=== PATIENT | female | born 1950 | race African-American/Black ===

== ENCOUNTER 2018-02-09 12:18 | Outpatient (CLI) | payer MEDICARE, MEDICAID | END 2018-02-09 12:19 | disposition home or self-care (01) | LOC: BICMAMMO 12:18 | PROVIDERS: ATTEND Family Medicine | DX: Z12.31 Encounter for screening mammogram for malignant neoplasm of breast (principal) | CPT/HCPCS: 77063; 77067 ==

== ENCOUNTER 2021-06-09 08:34 | Outpatient (CLI) | payer MEDICARE, MEDICAID ==
[2021-06-09 10:30] LABS: #Eosinphils 0.3 10x3/uL (0.0-0.5); #Monocytes 0.8 10x3/uL (0.0-1.1); #Neutrophils 5.1 10x3/uL (1.5-8.4); %Basophils 0.2 % (0.0-2.0); %Lymphocytes 26.3 % (18.0-47.0); %Monocytes 9.2 % (0.0-10.0); %Neutrophils 61.1 % (40.0-75.0); Hemoglobin 12.5 g/dL (12.0-15.5); Mean Corpuscular HGB CONC 31.3 g/dL (32.0-36.0); Mean Corpuscular Hemoglobin 28.8 pg (27.0-33.0); Mean Corpuscular Volume 91.9 fl (81.6-98.3); Mean Platelet Volume 9.7 fl (7.4-10.4); Platelet Count 259 10x3/uL (150-450); RBC Distribution Width 13.7 % (11.5-14.5); Red Blood Cell (RBC) Count 4.34 10x6/uL (3.90-5.03); White Blood Cell (WBC) Count 8.3 10x3/uL (3.5-10.5)
[2021-06-09 10:46] LABS: INR-International Normal Ratio 1.2; PTT 27.2 sec (22.0-33.0)
[2021-06-09 10:48] LABS: Anion Gap 14 mmol/L (10-20); BUN (Urea Nitrogen) 18 mg/dL (9.8-20.1); Calc. Creatinine Clearance 0 mL/min (70-130); Calcium 9.9 mg/dL (7.8-10.44); Carbon Dioxide 28 mmol/L (23-31); Chloride 102 mmol/L (98-107); Glucose 87 mg/dL (80-115); Potassium 3.8 mmol/L (3.5-5.1); Sodium 140 mmol/L (136-145)
[2021-06-09 18:41] LABS: SARS-CoV-2 PCR by NAA Not Detected (NotDetected)
== END 2021-06-09 08:35 | disposition home or self-care (01) ==
LOC: LABBT 08:34
PROVIDERS: ATTEND Internal Medicine Cardiovascular Disease
DX: Z01.812 Encounter for preprocedural laboratory examination (principal); I48.0 Paroxysmal atrial fibrillation; Z20.822 Contact with and (suspected) exposure to COVID-19
CPT/HCPCS: 80048; 85025; 85610; 85730; U0003; U0005

== ENCOUNTER 2022-04-28 14:50 | Inpatient (IN) | payer OTHER ==
[2022-04-28] MEDS ORDERED: Magnesium 2 GM/50 ML BAG (IN WATER) ONE (16:43)
[2022-04-28 16:58] LABS: #Eosinphils 0.3 thou/uL (0.0-0.7); #Lymphocytes 2.4 thou/uL (1.20-3.40); #Monocytes 0.7 thou/uL (0.11-0.59); #Neutrophils 5.9 thou/uL (1.40-6.50); %Basophils 0.2 % (0.0-1.0); %Eosinophils 3.6 % (0.0-10.0); %Lymphocytes 25.2 % (21.0-51.0); %Monocytes 7.9 % (0.0-10.0); %Neutrophils 63.2 % (42.0-75.0); Hemoglobin 13.5 g/dL (12.0-16.0); Mean Corpuscular HGB CONC 31.6 g/dL (32.0-36.0); Mean Corpuscular Hemoglobin 30.1 pg (27.0-31.0); Mean Corpuscular Volume 95.4 fL (78.0-98.0); Mean Platelet Volume 7.4 fL (7.4-10.4); Platelet Count 288 thou/uL (130-400); RBC Distribution Width 12.7 % (11.5-14.5); Red Blood Cell (RBC) Count 4.49 mill/uL (4.20-5.40); White Blood Cell (WBC) Count 9.3 thou/uL (4.8-10.8)
[2022-04-28 17:21] LABS: ALT (SGPT) Less than 7 U/L (8-55); AST (SGOT) 8 U/L (5-34); Albumin 3.6 g/dL (3.4-4.8); Alkaline Phosphatase 87 U/L (40-110); Anion Gap 13 mmol/L (10-20); BUN (Urea Nitrogen) 22 mg/dL (9.8-20.1); Bilirubin, Total 0.6 mg/dL (0.2-1.2); Calc. Creatinine Clearance 0 mL/min (70-130); Calcium 9.6 mg/dL (7.8-10.44); Carbon Dioxide 32 mmol/L (23-31); Chloride 95 mmol/L (98-107); Estimated GFR 31; Globulin 3.3 g/dL (2.4-3.5); Glucose 203 mg/dL (80-115); Magnesium 2.3 mg/dL (1.6-2.6); Potassium 3.4 mmol/L (3.5-5.1); Protein, Total 6.9 g/dL (5.8-8.1); Sodium 137 mmol/L (136-145)
[2022-04-28 20:26] LABS: Troponin I Less than 0.010 ng/mL (< 0.028)
[2022-04-28] MEDS ORDERED: Ondansetron PF 4 MG/2 ML Vial IVP PRN (21:15)
[2022-04-28] MEDS ORDERED: Acetaminophen 325 MG TAB PO PRN (21:15)
[2022-04-28] MEDS ORDERED: Ondansetron ODT 4 MG TAB SL PRN (21:15)
[2022-04-28 21:56] VITALS: BMI 44.4
[2022-04-29] MEDS ORDERED: Dextrose 50% Abboject 50 ML SYRINGE SLOW IVP PRN (04:11)
[2022-04-29] MEDS ORDERED: Dextrose 5% in Water 1,000 ML IV PRN (04:11)
[2022-04-29 08:26] LABS: Anion Gap 15 mmol/L (10-20); BUN (Urea Nitrogen) 24 mg/dL (9.8-20.1); Calc. Creatinine Clearance 57 mL/min (70-130); Calcium 9.9 mg/dL (7.8-10.44); Carbon Dioxide 33 mmol/L (23-31); Chloride 96 mmol/L (98-107); Estimated GFR 31; Glucose 146 mg/dL (80-115); Potassium 3.5 mmol/L (3.5-5.1); Sodium 140 mmol/L (136-145)
[2022-04-29] MEDS ORDERED: Furosemide 80 MG TAB PO SCH ×2 (09:00)
[2022-04-29] MEDS ORDERED: Sotalol HCl 80 MG TAB PO SCH (09:00)
[2022-04-29] MEDS ORDERED: Empagliflozin 25 MG TAB PO SCH (09:00)
[2022-04-29] MEDS: Apixaban 5 MG TAB PO SCH ×2 (11:35→20:31)
[2022-04-29] MEDS: Aspirin Chewable 81 MG TAB PO SCH (11:35)
[2022-04-29] MEDS: Sacubitril 49 MG/Valsartan 51 MG TABLET PO SCH ×2 (11:35→20:30)
[2022-04-29] MEDS: Amlodipine 5 MG TAB PO SCH (11:35)
[2022-04-29] MEDS: Furosemide 40 MG TAB PO SCH (11:36)
[2022-04-29] MEDS: Potassium Chloride 20 MEQ TAB PO SCH (11:36)
[2022-04-29] MEDS: Rosuvastatin 10 MG TAB PO SCH (11:37)
[2022-04-29] MEDS: Insulin Glargine 30 UNITS/0.3 ML VIAL SC SCH (11:37)
[2022-04-29] MEDS ORDERED: Sodium Chloride 0.9% 500 ML IVPB SCH (13:00)
[2022-04-29] MEDS: Aspirin 81 mg Enteric Coated Tablet PO SCH (13:25)
[2022-04-29] MEDS: HumaLOG 300 UNITS/3 ML VIAL SC PRN (13:31)
[2022-04-29] MEDS: Carvedilol 6.25 MG TAB PO SCH ×2 (13:32→21:15)
[2022-04-29] MEDS: Icosapent Ethyl 1 GM CAPSULE PO SCH ×2 (13:32→20:30)
[2022-04-30] MEDS: Furosemide 40 MG TAB PO SCH (09:26)
[2022-04-30] MEDS: Rosuvastatin 10 MG TAB PO SCH (09:27)
[2022-04-30] MEDS: Sacubitril 49 MG/Valsartan 51 MG TABLET PO SCH ×2 (09:27→20:30)
[2022-04-30] MEDS: Potassium Chloride 20 MEQ TAB PO SCH (09:28)
[2022-04-30] MEDS: Amlodipine 5 MG TAB PO SCH (09:28)
[2022-04-30] MEDS: Aspirin 81 mg Enteric Coated Tablet PO SCH (09:28)
[2022-04-30] MEDS: Carvedilol 6.25 MG TAB PO SCH (09:31)
[2022-04-30] MEDS: Sotalol HCl 80 MG TAB PO SCH ×2 (09:33→20:35)
[2022-04-30] MEDS: Apixaban 5 MG TAB PO SCH ×2 (09:33→20:30)
[2022-04-30] MEDS: Insulin Glargine 30 UNITS/0.3 ML VIAL SC SCH (09:36)
[2022-04-30] MEDS: Icosapent Ethyl 1 GM CAPSULE PO SCH ×2 (09:42→20:34)
[2022-04-30] MEDS: Aspirin Chewable 81 MG TAB PO SCH (10:15)
[2022-04-30] MEDS: HumaLOG 300 UNITS/3 ML VIAL SC PRN (13:17)
[2022-05-01 05:36] LABS: Anion Gap 13 mmol/L (10-20); BUN (Urea Nitrogen) 21 mg/dL (9.8-20.1); Calc. Creatinine Clearance 72 mL/min (70-130); Calcium 10.2 mg/dL (7.8-10.44); Carbon Dioxide 36 mmol/L (23-31); Chloride 93 mmol/L (98-107); Estimated GFR 41; Glucose 147 mg/dL (80-115); Sodium 139 mmol/L (136-145)
[2022-05-01 05:43] LABS: Potassium 2.6 mmol/L (3.5-5.1)
[2022-05-01] MEDS ORDERED: Electrolyte Replacement Protocol FS PRN (06:30)
[2022-05-01 06:39] LABS: Magnesium 2.6 mg/dL (1.6-2.6)
[2022-05-01] MEDS: Potassium Chloride 20 MEQ TAB PO SCH ×3 (07:00→13:48)
[2022-05-01] MEDS ORDERED: Apixaban 5 MG TAB PO SCH (09:00)
[2022-05-01] MEDS: Aspirin 81 mg Enteric Coated Tablet PO SCH (10:05)
[2022-05-01] MEDS: Insulin Glargine 30 UNITS/0.3 ML VIAL SC SCH (10:05)
[2022-05-01] MEDS: Icosapent Ethyl 1 GM CAPSULE PO SCH (10:05)
[2022-05-01] MEDS: Amlodipine 5 MG TAB PO SCH (10:05)
[2022-05-01] MEDS: Sotalol HCl 80 MG TAB PO SCH (10:06)
[2022-05-01] MEDS: Rosuvastatin 10 MG TAB PO SCH (10:06)
[2022-05-01] MEDS: Sacubitril 49 MG/Valsartan 51 MG TABLET PO SCH (10:06)
[2022-05-01] MEDS ORDERED: Potassium Chloride 20 MEQ TAB PO SCH ×3 (14:00→18:00)
[2022-05-01 15:48] LABS: Potassium 3.2 mmol/L (3.5-5.1)
[2022-05-01 15:55] VITALS: BP 134/81; TEMP 97.6
== END 2022-05-01 19:05 | disposition home or self-care (01) | DRG 309 ==
LOC: ERS 14:50 → 2SW 19:39 → OBSVTOIN 04-29 12:03
PROVIDERS: ADMIT Internal Medicine; ATTEND Internal Medicine
PROC: 4B02XTZ Measurement of Cardiac Defibrillator, External Approach (ICD-10-PCS; principal; 2022-04-29)
DX: R00.1 Bradycardia, unspecified (principal); I13.0 Hypertensive heart and chronic kidney disease with heart failure and stage 1 through stage 4 chronic kidney disease, or unspecified chronic kidney disease; Z68.41 Body mass index [BMI] 40.0-44.9, adult; N17.9 Acute kidney failure, unspecified; I25.10 Atherosclerotic heart disease of native coronary artery without angina pectoris; E78.5 Hyperlipidemia, unspecified; E87.6 Hypokalemia; E11.22 Type 2 diabetes mellitus with diabetic chronic kidney disease; I25.5 Ischemic cardiomyopathy; E66.01 Morbid (severe) obesity due to excess calories; R94.31 Abnormal electrocardiogram [ECG] [EKG]; I48.0 Paroxysmal atrial fibrillation; I50.9 Heart failure, unspecified; N18.9 Chronic kidney disease, unspecified; Z79.899 Other long term (current) drug therapy; Z95.1 Presence of aortocoronary bypass graft; Z79.82 Long term (current) use of aspirin; Z79.01 Long term (current) use of anticoagulants; Z95.810 Presence of automatic (implantable) cardiac defibrillator; Z83.3 Family history of diabetes mellitus; Z82.49 Family history of ischemic heart disease and other diseases of the circulatory system
CPT/HCPCS: 36415; 36416; 71045; 80048; 80053; 80061; 83735; 83880; 84484; 85025; 93005; 93010; 94760; 96374; G0378; J1815; J3475; J7030; U0003; U0005

== ENCOUNTER 2022-12-23 10:53 | Emergency (ER) | payer OTHER, MEDICAID ==
[2022-12-23] MEDS ORDERED: Ketorolac Tromethamine 30 MG/ML VIAL ONE (13:23)
== END 2022-12-23 13:55 | disposition home or self-care (01) ==
LOC: ERS 10:53
DX: M19.012 Primary osteoarthritis, left shoulder (principal); E11.9 Type 2 diabetes mellitus without complications; I10 Essential (primary) hypertension; Z79.82 Long term (current) use of aspirin; Z79.01 Long term (current) use of anticoagulants; Z79.899 Other long term (current) drug therapy
CPT/HCPCS: 93005; 96374; J1885

== ENCOUNTER 2023-05-04 11:01 | Inpatient (IN) | payer OTHER ==
[2023-05-04] MEDS ORDERED: Bacitracin 1 PK ONE ×2 (11:42→14:17)
[2023-05-04] MEDS ORDERED: Lidocaine 1% w/Epinephrine 1:100K 20 ML VIAL ONE (11:42)
[2023-05-04] MEDS ORDERED: Boostrix 0.5 ML (Tdap) VIAL (>/=7 yrs of age) ONE (11:42)
[2023-05-04 12:24] LABS: #Eosinphils 0.2 thou/uL (0.0-0.7); #Monocytes 0.6 thou/uL (0.11-0.59); #Neutrophils 4.3 thou/uL (1.40-6.50); %Basophils 0.2 % (0.0-1.0); %Eosinophils 2.9 % (0.0-10.0); %Lymphocytes 23.7 % (21.0-51.0); %Monocytes 8.4 % (0.0-10.0); %Neutrophils 64.6 % (42.0-75.0); Hemoglobin 12.6 g/dL (12.0-16.0); Mean Corpuscular HGB CONC 31.1 g/dL (32.0-36.0); Mean Corpuscular Hemoglobin 28.2 pg (27.0-31.0); Mean Corpuscular Volume 90.6 fl (78.0-98.0); Mean Platelet Volume 9.9 fL (7.4-10.4); Platelet Count 231 10x3/uL (130-400); RBC Distribution Width 12.9 % (11.5-14.5); Red Blood Cell (RBC) Count 4.47 mill/uL (4.20-5.40); White Blood Cell (WBC) Count 6.6 10x3/uL (4.8-10.8)
[2023-05-04 12:53] LABS: ALT (SGPT) 7 U/L (8-55); AST (SGOT) 11 U/L (5-34); Albumin 3.7 g/dL (3.4-4.8); Alkaline Phosphatase 72 U/L (40-110); Anion Gap 12 mmol/L (10-20); BUN (Urea Nitrogen) 18 mg/dL (9.8-20.1); Bilirubin, Total 0.4 mg/dL (0.2-1.2); Calc. Creatinine Clearance 0 mL/min (70-130); Carbon Dioxide 31 mmol/L (23-31); Chloride 98 mmol/L (98-107); Estimated GFR 33; Globulin 3.4 g/dL (2.4-3.5); Glucose 326 mg/dL (83-110); Potassium 3.8 mmol/L (3.5-5.1); Protein, Total 7.1 g/dL (5.8-8.1); Sodium 137 mmol/L (136-145)
[2023-05-04] MEDS ORDERED: Ondansetron ODT 4 MG TAB PO PRN (14:27)
[2023-05-04] MEDS ORDERED: Acetaminophen 325 MG TAB PO PRN (14:27)
[2023-05-04] MEDS ORDERED: Ondansetron PF 4 MG/2 ML Vial IVP PRN (14:27)
[2023-05-04] MEDS ORDERED: Dextrose 5% in Water 1,000 ML IV PRN (14:33)
[2023-05-04] MEDS ORDERED: HumaLOG 300 UNITS/3 ML VIAL SC PRN (14:33)
[2023-05-04] MEDS ORDERED: Dextrose 50% Abboject 50 ML SYRINGE SLOW IVP PRN (14:33)
[2023-05-04] MEDS ORDERED: Glucagon 1 MG/ML KIT IM PRN (14:33)
[2023-05-04 15:09] LABS: Magnesium 2.2 mg/dL (1.6-2.6)
[2023-05-04 16:58] LABS: Troponin I Less than 0.010 ng/mL (< 0.028)
[2023-05-04 17:12] VITALS: BMI 37.7
[2023-05-04] MEDS: HumaLOG 300 UNITS/3 ML VIAL SC PRN (21:07)
[2023-05-05 04:41] LABS: #Eosinphils 0.3 thou/uL (0.0-0.7); #Monocytes 0.7 thou/uL (0.11-0.59); #Neutrophils 3.7 thou/uL (1.40-6.50); %Basophils 0.3 % (0.0-1.0); %Eosinophils 3.8 % (0.0-10.0); %Lymphocytes 31.2 % (21.0-51.0); %Monocytes 9.7 % (0.0-10.0); %Neutrophils 54.9 % (42.0-75.0); Hemoglobin 11.6 g/dL (12.0-16.0); Mean Corpuscular HGB CONC 31.8 g/dL (32.0-36.0); Mean Corpuscular Hemoglobin 28.4 pg (27.0-31.0); Mean Corpuscular Volume 89.5 fl (78.0-98.0); Mean Platelet Volume 9.9 fL (7.4-10.4); Platelet Count 214 10x3/uL (130-400); Red Blood Cell (RBC) Count 4.08 mill/uL (4.20-5.40); White Blood Cell (WBC) Count 6.8 10x3/uL (4.8-10.8)
[2023-05-05 05:09] LABS: Anion Gap 10 mmol/L (10-20); BUN (Urea Nitrogen) 14 mg/dL (9.8-20.1); Calc. Creatinine Clearance 66 mL/min (70-130); Carbon Dioxide 30 mmol/L (23-31); Chloride 97 mmol/L (98-107); Estimated GFR 39; Glucose 123 mg/dL (83-110); Potassium 2.9 mmol/L (3.5-5.1); Sodium 134 mmol/L (136-145)
[2023-05-05] MEDS: Aspirin 81 mg Enteric Coated Tablet PO SCH (08:16)
[2023-05-05] MEDS: Carvedilol 6.25 MG TAB PO SCH ×2 (08:16→17:49)
[2023-05-05] MEDS: Ezetimibe 10 MG TAB PO SCH (08:16)
[2023-05-05] MEDS ORDERED: Potassium Chloride 20 MEQ TAB PO SCH (08:30)
[2023-05-05 08:48] LABS: Magnesium 2.2 mg/dL (1.6-2.6)
[2023-05-05 13:56] LABS: Potassium 3.5 mmol/L (3.5-5.1)
[2023-05-05] MEDS: HumaLOG 300 UNITS/3 ML VIAL SC PRN (18:02)
[2023-05-05] MEDS ORDERED: Sacubitril 24MG/Valsartan 26 MG TAB PO SCH (21:00)
[2023-05-05] MEDS ORDERED: Rosuvastatin 20 MG TAB PO SCH (21:00)
[2023-05-05] MEDS: Icosapent Ethyl 1 GM CAPSULE PO SCH (21:16)
[2023-05-06] MEDS: HumaLOG 300 UNITS/3 ML VIAL SC PRN (06:11)
[2023-05-06 06:24] LABS: #Eosinphils 0.3 thou/uL (0.0-0.7); #Monocytes 0.5 thou/uL (0.11-0.59); #Neutrophils 2.8 thou/uL (1.40-6.50); %Basophils 0.2 % (0.0-1.0); %Eosinophils 5.2 % (0.0-10.0); %Lymphocytes 35.4 % (21.0-51.0); %Monocytes 8.7 % (0.0-10.0); %Neutrophils 50.1 % (42.0-75.0); Hemoglobin 11.8 g/dL (12.0-16.0); Mean Corpuscular HGB CONC 31.4 g/dL (32.0-36.0); Mean Corpuscular Hemoglobin 28.2 pg (27.0-31.0); Mean Corpuscular Volume 89.7 fl (78.0-98.0); Mean Platelet Volume 9.7 fL (7.4-10.4); Platelet Count 218 10x3/uL (130-400); RBC Distribution Width 13.1 % (11.5-14.5); Red Blood Cell (RBC) Count 4.19 mill/uL (4.20-5.40); White Blood Cell (WBC) Count 5.6 10x3/uL (4.8-10.8)
[2023-05-06 06:49] LABS: Anion Gap 10 mmol/L (10-20); BUN (Urea Nitrogen) 17 mg/dL (9.8-20.1); Calc. Creatinine Clearance 56 mL/min (70-130); Carbon Dioxide 30 mmol/L (23-31); Chloride 100 mmol/L (98-107); Estimated GFR 32; Glucose 253 mg/dL (83-110); Magnesium 2.3 mg/dL (1.6-2.6); Potassium 3.4 mmol/L (3.5-5.1); Sodium 137 mmol/L (136-145)
[2023-05-06] MEDS ORDERED: Sacubitril 49 MG/Valsartan 51 MG TABLET PO SCH (09:00)
[2023-05-06] MEDS: Carvedilol 6.25 MG TAB PO SCH (09:58)
[2023-05-06] MEDS: Aspirin 81 mg Enteric Coated Tablet PO SCH (09:59)
[2023-05-06] MEDS: Ezetimibe 10 MG TAB PO SCH (10:00)
[2023-05-06] MEDS: Icosapent Ethyl 1 GM CAPSULE PO SCH (10:01)
[2023-05-06] MEDS ORDERED: Potassium Chloride 20 MEQ TAB PO SCH (11:45)
[2023-05-06 12:03] VITALS: BP 129/83; TEMP 98.4
== END 2023-05-06 14:15 | disposition home or self-care (01) | DRG 312 ==
LOC: ERS 11:01 → 2SW 14:26 → OBSVTOIN 05-05 07:39
PROVIDERS: ADMIT Hospitalist; ATTEND Internal Medicine
PROC: 0HQLXZZ Repair Left Lower Leg Skin, External Approach (ICD-10-PCS; principal; 2023-05-05)
DX: R55 Syncope and collapse (principal); I48.19 Other persistent atrial fibrillation; E87.1 Hypo-osmolality and hyponatremia; I13.0 Hypertensive heart and chronic kidney disease with heart failure and stage 1 through stage 4 chronic kidney disease, or unspecified chronic kidney disease; I50.22 Chronic systolic (congestive) heart failure; I25.10 Atherosclerotic heart disease of native coronary artery without angina pectoris; E11.22 Type 2 diabetes mellitus with diabetic chronic kidney disease; I25.5 Ischemic cardiomyopathy; S81.812A Laceration without foreign body, left lower leg, initial encounter; W18.30XA Fall on same level, unspecified, initial encounter; E66.01 Morbid (severe) obesity due to excess calories; E87.6 Hypokalemia; E78.00 Pure hypercholesterolemia, unspecified; N18.30 Chronic kidney disease, stage 3 unspecified; Z95.810 Presence of automatic (implantable) cardiac defibrillator; I25.2 Old myocardial infarction; Z79.01 Long term (current) use of anticoagulants; Z79.82 Long term (current) use of aspirin; Z79.4 Long term (current) use of insulin; Z68.37 Body mass index [BMI] 37.0-37.9, adult; Y92.009 Unspecified place in unspecified non-institutional (private) residence as the place of occurrence of the external cause
CPT/HCPCS: 12002; 36415; 36416; 70450; 71045; 72125; 80048; 80053; 83735; 84484; 85025; 90471; 90715; 93005; J1815

== ENCOUNTER 2023-09-22 04:37 | Inpatient (IN) | payer OTHER ==
[2023-09-22 05:18] LABS: Bacteria/HPF None Seen HPF (None Seen); Bilirubin Negative (Negative); Blood, Urine Trace (Negative); CAUTI Indications for Culture Dysuria,urgency,freq; Clarity Clear (Clear); Glucose, Urine (Dipstick) Greater than 1000 mg/dL (Negative); Ketone, Urine Negative (Negative); Leukocyte Negative Leu/uL (Negative); Nitrite Negative (Negative); Protein, Urine (Dipstick) 10 mg/dL (Neg-Trace); RBC/HPF 0-3 HPF (0-3); Specific Gravity, Urine 1.007 (1.002-1.036); Squamous Epithelial 0-3 HPF (0-3); Urobilinogen Normal mg/dL (Less than 2); WBC/HPF 0-3 HPF (0-3)
[2023-09-22 05:18] LABS: #Eosinphils 0.4 thou/uL (0.0-0.7); #Monocytes 0.5 thou/uL (0.11-0.59); #Neutrophils 3.9 thou/uL (1.40-6.50); %Basophils 0.1 % (0.0-1.0); %Lymphocytes 32.1 % (21.0-51.0); %Monocytes 7.1 % (0.0-10.0); %Neutrophils 54.3 % (42.0-75.0); Hematocrit 36.6 % (36.0-47.0); Hemoglobin 11.6 g/dL (12.0-16.0); Mean Corpuscular HGB CONC 31.7 g/dL (32.0-36.0); Mean Corpuscular Hemoglobin 28.2 pg (27.0-31.0); Mean Corpuscular Volume 89.1 fl (78.0-98.0); Mean Platelet Volume 9.4 fL (7.4-10.4); Platelet Count 257 10x3/uL (130-400); RBC Distribution Width 13.3 % (11.5-14.5); Red Blood Cell (RBC) Count 4.11 mill/uL (4.20-5.40); White Blood Cell (WBC) Count 7.2 10x3/uL (4.8-10.8)
[2023-09-22 05:19] LABS: Urine Culture Reflex No No
[2023-09-22 05:42] LABS: ALT (SGPT) 7 U/L (8-55); AST (SGOT) 14 U/L (5-34); Albumin 3.8 g/dL (3.4-4.8); Alkaline Phosphatase 73 U/L (40-110); Anion Gap 15 mmol/L (10-20); BUN (Urea Nitrogen) 22 mg/dL (9.8-20.1); Bilirubin, Total 0.4 mg/dL (0.2-1.2); Calc. Creatinine Clearance 0 mL/min (70-130); Calcium 9.8 mg/dL (7.8-10.44); Carbon Dioxide 28 mmol/L (23-31); Chloride 102 mmol/L (98-107); Estimated GFR 35; Glucose 155 mg/dL (83-110); Magnesium 2.5 mg/dL (1.6-2.6); Potassium 3.1 mmol/L (3.5-5.1); Protein, Total 7.8 g/dL (5.8-8.1); Sodium 142 mmol/L (136-145)
[2023-09-22 05:47] LABS: Troponin I 0.049 ng/mL (< 0.028)
[2023-09-22] MEDS ORDERED: Potassium Chloride 20 MEQ TAB ONE (07:11)
[2023-09-22] MEDS ORDERED: Acetaminophen 325 MG TAB PO PRN (08:09)
[2023-09-22] MEDS ORDERED: Apixaban 5 MG TAB PO SCH (09:00)
[2023-09-22 10:33] VITALS: BMI 37.5
[2023-09-22] MEDS: Sacubitril 49 MG/Valsartan 51 MG TABLET PO SCH ×2 (12:49→21:22)
[2023-09-22] MEDS: Aspirin 81 mg Enteric Coated Tablet PO SCH (12:49)
[2023-09-22] MEDS: Empagliflozin 25 MG TAB PO SCH (12:49)
[2023-09-22] MEDS: Furosemide 20 MG TAB PO SCH ×2 (12:49→18:24)
[2023-09-22] MEDS: Insulin Glargine 30 UNITS/0.3 ML VIAL SC SCH ×2 (12:49→21:22)
[2023-09-22] MEDS ORDERED: Communication Order-Pharmacy FS SCH (13:18)
[2023-09-22] MEDS ORDERED: Amiodarone 450 MG in Dextrose 5% in Water 250 ML IVPB SCH (13:30)
[2023-09-22 14:01] LABS: Hematocrit 36.1 % (36.0-47.0); Hemoglobin 11.4 g/dL (12.0-16.0); Platelet Count 256 10x3/uL (130-400)
[2023-09-22] MEDS ORDERED: Amiodarone 150 MG, Admixture Fee 1 EACH in Dextrose 5% in Water 100 ML IVPB SCH (14:30)
[2023-09-22] MEDS ORDERED: Amiodarone 150 MG in Dextrose 5% in Water 100 ML IVPB SCH (14:30)
[2023-09-22] MEDS: Carvedilol 6.25 MG TAB PO SCH (18:24)
[2023-09-22] MEDS: Potassium Chloride 10 MEQ TAB PO SCH (18:25)
[2023-09-22] MEDS: Rosuvastatin 20 MG TAB PO SCH (21:22)
[2023-09-23 05:38] LABS: Anion Gap 10 mmol/L (10-20); BUN (Urea Nitrogen) 20 mg/dL (9.8-20.1); Calc. Creatinine Clearance 55 mL/min (70-130); Carbon Dioxide 33 mmol/L (23-31); Chloride 102 mmol/L (98-107); Potassium 3.4 mmol/L (3.5-5.1); Sodium 142 mmol/L (136-145)
[2023-09-23 05:39] LABS: Calcium 9.3 mg/dL (7.8-10.44); Cardiac Risk 3.6 (Less than 4.5); Cholesterol 127 mg/dl (< 200 Desired); Estimated GFR 32; Glucose 123 mg/dL (83-110); HDL Cholesterol 35 mg/dL (>60 Neg Risk); LDL Cholesterol, Calculated 69 mg/dL; Triglycerides 113 mg/dL (Less than 150)
[2023-09-23] MEDS ORDERED: Potassium Chloride 20 MEQ TAB PO SCH (08:00)
[2023-09-23] MEDS ORDERED: Electrolyte Replacement Protocol 1 EACH FS SCH (08:00)
[2023-09-23 08:06] LABS: Magnesium 2.5 mg/dL (1.6-2.6)
[2023-09-23] MEDS: Furosemide 20 MG TAB PO SCH ×2 (08:46→13:02)
[2023-09-23] MEDS: Aspirin 81 mg Enteric Coated Tablet PO SCH (08:46)
[2023-09-23] MEDS: Potassium Chloride 10 MEQ TAB PO SCH ×2 (08:46→17:03)
[2023-09-23] MEDS: Insulin Glargine 30 UNITS/0.3 ML VIAL SC SCH ×2 (08:46→20:39)
[2023-09-23] MEDS: Sacubitril 49 MG/Valsartan 51 MG TABLET PO SCH ×2 (08:46→20:40)
[2023-09-23] MEDS: Empagliflozin 25 MG TAB PO SCH (08:46)
[2023-09-23] MEDS: Carvedilol 6.25 MG TAB PO SCH ×2 (08:47→17:03)
[2023-09-23] MEDS: Rosuvastatin 20 MG TAB PO SCH (20:40)
[2023-09-24 04:44] LABS: #Eosinphils 0.4 thou/uL (0.0-0.7); #Monocytes 0.6 thou/uL (0.11-0.59); #Neutrophils 3.1 thou/uL (1.40-6.50); %Basophils 0.3 % (0.0-1.0); %Eosinophils 6.7 % (0.0-10.0); %Lymphocytes 36.4 % (21.0-51.0); %Monocytes 8.5 % (0.0-10.0); %Neutrophils 47.9 % (42.0-75.0); Hematocrit 35.7 % (36.0-47.0); Hemoglobin 11.1 g/dL (12.0-16.0); Mean Corpuscular HGB CONC 31.1 g/dL (32.0-36.0); Mean Corpuscular Hemoglobin 28.2 pg (27.0-31.0); Mean Corpuscular Volume 90.6 fl (78.0-98.0); Mean Platelet Volume 9.4 fL (7.4-10.4); Platelet Count 226 10x3/uL (130-400); RBC Distribution Width 13.3 % (11.5-14.5); Red Blood Cell (RBC) Count 3.94 mill/uL (4.20-5.40); White Blood Cell (WBC) Count 6.6 10x3/uL (4.8-10.8)
[2023-09-24 05:13] LABS: Anion Gap 11 mmol/L (10-20); BUN (Urea Nitrogen) 20 mg/dL (9.8-20.1); Calc. Creatinine Clearance 63 mL/min (70-130); Calcium 9.9 mg/dL (7.8-10.44); Carbon Dioxide 31 mmol/L (23-31); Chloride 101 mmol/L (98-107); Estimated GFR 38; Glucose 102 mg/dL (83-110); Magnesium 2.5 mg/dL (1.6-2.6); Potassium 3.5 mmol/L (3.5-5.1); Sodium 139 mmol/L (136-145)
[2023-09-24] MEDS ORDERED: Potassium Chloride 20 MEQ TAB PO SCH (08:00)
[2023-09-24] MEDS: Empagliflozin 25 MG TAB PO SCH (08:51)
[2023-09-24] MEDS: Furosemide 20 MG TAB PO SCH ×2 (08:51→13:11)
[2023-09-24] MEDS: Insulin Glargine 30 UNITS/0.3 ML VIAL SC SCH ×2 (08:52→22:26)
[2023-09-24] MEDS: Aspirin 81 mg Enteric Coated Tablet PO SCH (08:52)
[2023-09-24] MEDS: Carvedilol 6.25 MG TAB PO SCH ×2 (08:52→16:56)
[2023-09-24] MEDS: Potassium Chloride 10 MEQ TAB PO SCH ×2 (08:52→17:16)
[2023-09-24] MEDS: Sacubitril 49 MG/Valsartan 51 MG TABLET PO SCH ×2 (08:52→20:40)
[2023-09-24] MEDS ORDERED: Communication Order-Pharmacy FS SCH (09:45)
[2023-09-24] MEDS: Rosuvastatin 20 MG TAB PO SCH (20:40)
[2023-09-25 05:46] LABS: Hemoglobin 12.3 g/dL (12.0-16.0); Platelet Count 278 10x3/uL (130-400)
[2023-09-25 05:47] LABS: #Eosinphils 0.4 thou/uL (0.0-0.7); #Monocytes 0.5 thou/uL (0.11-0.59); #Neutrophils 3.8 thou/uL (1.40-6.50); %Basophils 0.4 % (0.0-1.0); %Eosinophils 5.7 % (0.0-10.0); %Lymphocytes 34.9 % (21.0-51.0); %Monocytes 6.8 % (0.0-10.0); %Neutrophils 52.1 % (42.0-75.0); Hemoglobin 12.5 g/dL (12.0-16.0); Mean Corpuscular HGB CONC 31.3 g/dL (32.0-36.0); Mean Corpuscular Hemoglobin 28.1 pg (27.0-31.0); Mean Corpuscular Volume 89.9 fl (78.0-98.0); Mean Platelet Volume 9.9 fL (7.4-10.4); Platelet Count 277 10x3/uL (130-400); RBC Distribution Width 13.3 % (11.5-14.5); Red Blood Cell (RBC) Count 4.45 mill/uL (4.20-5.40); White Blood Cell (WBC) Count 7.4 10x3/uL (4.8-10.8)
[2023-09-25] MEDS: Sodium Chloride 0.9% 1,000 ML IV SCH ×2 (06:12→17:48)
[2023-09-25] MEDS: Potassium Chloride 10 MEQ TAB PO SCH ×2 (06:12→18:03)
[2023-09-25] MEDS: Carvedilol 6.25 MG TAB PO SCH ×2 (06:12→18:03)
[2023-09-25 06:21] LABS: Anion Gap 15 mmol/L (10-20); BUN (Urea Nitrogen) 22 mg/dL (9.8-20.1); Calc. Creatinine Clearance 62 mL/min (70-130); Calcium 10.6 mg/dL (7.8-10.44); Carbon Dioxide 29 mmol/L (23-31); Chloride 100 mmol/L (98-107); Estimated GFR 37; Glucose 130 mg/dL (83-110); Magnesium 2.4 mg/dL (1.6-2.6); Potassium 4.1 mmol/L (3.5-5.1); Sodium 140 mmol/L (136-145)
[2023-09-25] MEDS: Empagliflozin 25 MG TAB PO SCH ×2 (06:44→14:38)
[2023-09-25] MEDS: Sacubitril 49 MG/Valsartan 51 MG TABLET PO SCH ×3 (06:45→23:05)
[2023-09-25] MEDS: Furosemide 20 MG TAB PO SCH ×3 (06:45→14:38)
[2023-09-25] MEDS: Insulin Glargine 30 UNITS/0.3 ML VIAL SC SCH ×3 (06:45→23:04)
[2023-09-25] MEDS ORDERED: Heparin 10,000 UNITS/ 10 ML VIAL ONE (09:20)
[2023-09-25] MEDS ORDERED: Lidocaine 1% (PF) 30 ML VIAL ONE (09:20)
[2023-09-25] MEDS ORDERED: fentaNYL 50 mcg/mL 1 mL Vial ONE (09:56)
[2023-09-25] MEDS ORDERED: Midazolam HCl 2 mg/2 ml Vial ONE (09:57)
[2023-09-25] MEDS ORDERED: TICAGRELOR 90 MG TABLET ONE (11:15)
[2023-09-25] MEDS ORDERED: hydrALAZINE 20 MG/ML VIAL ONE (11:25)
[2023-09-25] MEDS: Aspirin 81 mg Enteric Coated Tablet PO SCH (14:38)
[2023-09-25] MEDS ORDERED: Polyethylene Glycol 3350 17 GM Packet PO PRN (18:28)
[2023-09-25] MEDS: Rosuvastatin 20 MG TAB PO SCH (23:05)
[2023-09-25] MEDS: Senokot S 8.6-50 MG TAB PO SCH (23:06)
[2023-09-26 04:08] LABS: #Eosinphils 0.4 thou/uL (0.0-0.7); #Monocytes 0.7 thou/uL (0.11-0.59); #Neutrophils 4.7 thou/uL (1.40-6.50); %Basophils 0.1 % (0.0-1.0); %Eosinophils 4.8 % (0.0-10.0); %Lymphocytes 24.1 % (21.0-51.0); %Monocytes 8.6 % (0.0-10.0); %Neutrophils 62.1 % (42.0-75.0); Hematocrit 37.6 % (36.0-47.0); Hemoglobin 11.8 g/dL (12.0-16.0); Mean Corpuscular HGB CONC 31.4 g/dL (32.0-36.0); Mean Corpuscular Hemoglobin 28.3 pg (27.0-31.0); Mean Corpuscular Volume 90.2 fl (78.0-98.0); Mean Platelet Volume 9.7 fL (7.4-10.4); Platelet Count 241 10x3/uL (130-400); RBC Distribution Width 13.4 % (11.5-14.5); Red Blood Cell (RBC) Count 4.17 mill/uL (4.20-5.40); White Blood Cell (WBC) Count 7.5 10x3/uL (4.8-10.8)
[2023-09-26 04:31] LABS: INR-International Normal Ratio 1.1; PTT 32.1 sec (22.9-36.1); Prothrombin Time 14.6 sec (12.0-14.7)
[2023-09-26 04:33] LABS: Anion Gap 14 mmol/L (10-20); BUN (Urea Nitrogen) 18 mg/dL (9.8-20.1); Calc. Creatinine Clearance 72 mL/min (70-130); Calcium 9.7 mg/dL (7.8-10.44); Carbon Dioxide 26 mmol/L (23-31); Chloride 104 mmol/L (98-107); Estimated GFR 45; Glucose 144 mg/dL (83-110); Magnesium 2.2 mg/dL (1.6-2.6); Potassium 3.5 mmol/L (3.5-5.1); Sodium 140 mmol/L (136-145)
[2023-09-26] MEDS ORDERED: Clopidogrel Bisulfate 300 MG TAB PO SCH (08:00)
[2023-09-26 08:07] VITALS: BP 129/61; TEMP 97.9
[2023-09-26] MEDS ORDERED: Potassium Chloride 20 MEQ TAB PO SCH (09:15)
[2023-09-26] MEDS: Potassium Chloride 10 MEQ TAB PO SCH (09:22)
[2023-09-26] MEDS: Senokot S 8.6-50 MG TAB PO SCH (09:22)
[2023-09-26] MEDS: Aspirin 81 mg Enteric Coated Tablet PO SCH (09:22)
[2023-09-26] MEDS: Empagliflozin 25 MG TAB PO SCH ×2 (09:23→09:24)
[2023-09-26] MEDS: Sacubitril 49 MG/Valsartan 51 MG TABLET PO SCH (09:26)
[2023-09-26] MEDS: Furosemide 20 MG TAB PO SCH (09:26)
[2023-09-26] MEDS: Carvedilol 6.25 MG TAB PO SCH (09:27)
[2023-09-26] MEDS: Insulin Glargine 30 UNITS/0.3 ML VIAL SC SCH (09:30)
[2023-09-26] MEDS ORDERED: Furosemide 20 MG TAB PO SCH (14:00)
[2023-09-26] MEDS ORDERED: Insulin Glargine 30 UNITS/0.3 ML VIAL SC SCH (21:00)
[2023-09-26] MEDS ORDERED: Sacubitril 49 MG/Valsartan 51 MG TABLET PO SCH (21:00)
[2023-09-27] MEDS ORDERED: Apixaban 5 MG TAB PO SCH (09:00)
[2023-09-27] MEDS ORDERED: Empagliflozin 25 MG TAB PO SCH (09:00)
[2023-09-27] MEDS ORDERED: Clopidogrel Bisulfate 75 MG TAB PO SCH (09:00)
== END 2023-09-26 14:19 | disposition home or self-care (01) | DRG 324 ==
LOC: SUATTDRO 04:37 → ERS 04:37 → 2NO 09:34 → OBSVTOIN 09-23 18:08 → 2NO 09-25 09:34
PROVIDERS: ADMIT Internal Medicine; ATTEND Family Medicine
PROC: 027034Z Dilation of Coronary Artery, One Artery with Drug-eluting Intraluminal Device, Percutaneous Approach (ICD-10-PCS; principal; 2023-09-25)
PROC: 4A023N7 Measurement of Cardiac Sampling and Pressure, Left Heart, Percutaneous Approach (ICD-10-PCS; 2023-09-25)
PROC: B2151ZZ Fluoroscopy of Left Heart using Low Osmolar Contrast (ICD-10-PCS; 2023-09-25)
PROC: B2111ZZ Fluoroscopy of Multiple Coronary Arteries using Low Osmolar Contrast (ICD-10-PCS; 2023-09-25)
PROC: 02F03ZZ Fragmentation in Coronary Artery, One Artery, Percutaneous Approach (ICD-10-PCS; 2023-09-25)
DX: I47.20 Ventricular tachycardia, unspecified (principal); I97.610 Postprocedural hemorrhage of a circulatory system organ or structure following a cardiac catheterization; E87.6 Hypokalemia; I25.10 Atherosclerotic heart disease of native coronary artery without angina pectoris; I25.5 Ischemic cardiomyopathy; N18.32 Chronic kidney disease, stage 3b; E11.22 Type 2 diabetes mellitus with diabetic chronic kidney disease; Z79.899 Other long term (current) drug therapy; E78.5 Hyperlipidemia, unspecified; Z95.1 Presence of aortocoronary bypass graft; Z79.4 Long term (current) use of insulin; Z79.82 Long term (current) use of aspirin; Z79.01 Long term (current) use of anticoagulants; Z95.810 Presence of automatic (implantable) cardiac defibrillator; I12.9 Hypertensive chronic kidney disease with stage 1 through stage 4 chronic kidney disease, or unspecified chronic kidney disease; E78.00 Pure hypercholesterolemia, unspecified; I48.0 Paroxysmal atrial fibrillation; Z68.37 Body mass index [BMI] 37.0-37.9, adult; I25.2 Old myocardial infarction; E66.01 Morbid (severe) obesity due to excess calories
CPT/HCPCS: 36415; 36416; 71045; 80048; 80053; 80061; 81001; 83735; 83880; 84443; 84484; 85014; 85018; 85025; 85049; 85347; 85610; 85730; 86850; 86900; 86901; 92928; 93005; 93306; 93454; 96372; 96374; 96376; 99152; 99153; C1725; C1760; C1761; C1769; C1874; C1887; C9600; G0378; J0282; J0360; J1644; J1650; J1815; J2001; J2250; J3010; J7050; J7070